=== PATIENT | male | born 1990 | race Caucasian/White ===

== ENCOUNTER 2017-09-07 20:57 | Emergency (ER) | payer OTHER ==
[~2017-09-07] VITALS: Ht 182.9 cm; Wt 100.0 kg
[~2017-09-07 20:57] MED LIST: NOCURR; OMEP20 PO; TRAM50TA4 PO
[2017-09-07] MEDS ORDERED: ACET-784 PO (21:19)
[2017-09-07] MEDS ORDERED: LIDOCAINE HCL 1% 10 ML VIAL INJ ONE (21:45)
[2017-09-07] MEDS ORDERED: BUPIVACAINE HCL/PF 0.25% 10 ML VIAL INJ ONE (21:45)
[2017-09-07] MEDS ORDERED: LIDOCAINE HCL/PF 1% 2 ML VIAL INJ ONE (22:00)
[2017-09-07 22:03] VITALS: BP 141/80
== END 2017-09-07 22:21 | disposition home or self-care (01) ==
LOC: EMS 20:57
DX: K02.9 Dental caries, unspecified (principal); R03.0 Elevated blood-pressure reading, without diagnosis of hypertension; Z87.891 Personal history of nicotine dependence; Z79.899 Other long term (current) drug therapy
CPT/HCPCS: 64400; 99284; J3490 ×2

== ENCOUNTER 2018-01-22 19:46 | Emergency (ER) | payer OTHER ==
[~2018-01-22] VITALS: Ht 182.9 cm; Wt 97.7 kg
[~2018-01-22 19:46] MED LIST changes: +ACET-784 PO; -NOCURR; -OMEP20 PO; -TRAM50TA4 PO
[2018-01-22] MEDS ORDERED: BUPIVACAINE HCL/PF 0.5% 10 ML VIAL PERC ONE (20:30)
[2018-01-22 21:24] VITALS: BP 146/90
== END 2018-01-22 21:52 | disposition home or self-care (01) ==
LOC: EMS 19:47
DX: K08.89 Other specified disorders of teeth and supporting structures (principal); F17.210 Nicotine dependence, cigarettes, uncomplicated; R03.0 Elevated blood-pressure reading, without diagnosis of hypertension; F12.90 Cannabis use, unspecified, uncomplicated
CPT/HCPCS: 64400; 99284; 99406; J3490

== ENCOUNTER 2018-07-26 02:48 | Emergency (ER) | payer OTHER ==
[~2018-07-26] VITALS: Ht 180.3 cm; Wt 98.2 kg
[2018-07-26 04:52] VITALS: BP 155/84
== END 2018-07-26 05:25 | disposition home or self-care (01) ==
LOC: EMS 02:48
DX: H66.91 Otitis media, unspecified, right ear (principal); H60.8X1 Other otitis externa, right ear; R09.81 Nasal congestion; F17.210 Nicotine dependence, cigarettes, uncomplicated; F12.90 Cannabis use, unspecified, uncomplicated

== ENCOUNTER 2019-03-12 16:08 | Emergency (ER) | payer OTHER ==
[~2019-03-12] VITALS: Ht 182.9 cm; Wt 97.7 kg
[2019-03-12] MEDS ORDERED: MULT-959 PO (16:13)
[2019-03-12 16:41] VITALS: BP 148/88
== END 2019-03-12 17:13 | disposition home or self-care (01) ==
LOC: EMS 16:11
DX: K08.89 Other specified disorders of teeth and supporting structures (principal); R03.0 Elevated blood-pressure reading, without diagnosis of hypertension; F17.210 Nicotine dependence, cigarettes, uncomplicated; F12.90 Cannabis use, unspecified, uncomplicated